=== PATIENT | female | born 1980 | race Caucasian/White ===

== ENCOUNTER 2017-11-08 11:25 | Inpatient (IN) | payer MEDICARE, MEDICAID ==
[~2017-11-08] VITALS: Ht 167.6 cm; Wt 92.9 kg
[2017-11-08 12:58] LABS: BASOPHILS % (AUTO) 0.7 % (0.0-2.0); EOSINOPHILS % (AUTO) 0.3 % (1.0-6.0); HEMATOCRIT 37.5 % (36-46); HEMOGLOBIN 12.9 g/dL (12.0-16.0); LYMPHOCYTES # (AUTO) 2.2 K/uL (1.0-4.8); MEAN CORPUSCULAR HEMOGLOBIN 30.7 pg (26.0-34.0); MEAN CORPUSCULAR HGB CONC 34.5 G/dL (31.0-37.0); MEAN CORPUSCULAR VOLUME 89 fL (80-100); MONOCYTES # (AUTO) 0.4 K/uL (0.1-1.0); MONOCYTES % (AUTO) 4.7 % (2.0-9.0); NEUTROPHILS # (AUTO) 6.3 K/uL (1.8-7.7); NEUTROPHILS % (AUTO) 70.3 % (40.0-70.0); PLATELET COUNT (AUTO) 401 K/uL (150-450); RED BLOOD CELL COUNT(AUTO) 4.22 MIL/uL (4.00-5.20); RED CELL DISTRIBUTION WIDTH 14.3 % (11.5-14.5)
[2017-11-08 13:12] LABS: ANION GAP 9 mmol/L (8-16); CALCIUM, TOTAL 7.9 mg/dL (8.8-10.5); CARBON DIOXIDE 23 mmol/L (22-29); CHLORIDE 106 mmol/L (98-107); CREATININE 0.66 mg/dL (0.60-1.30); GLOMERULAR FILTR. RATE CALC > 60 mL/min (>60); GLUCOSE,RANDOM 88 mg/dL (70-110); POTASSIUM 3.8 mmol/L (3.5-5.1); SODIUM SERUM 138 mmol/L (136-145); UREA NITROGEN, BLOOD 10 mg/dL (7-18)
[2017-11-08 13:26] LABS: ALANINE AMINOTRANSFERASE 27 U/L (12-78); ALBUMIN 3.4 g/dL (3.4-5.0); ALKALINE PHOSPHATASE 97 U/L (46-116); ASPARTATE AMINOTRANSFERASE 19 U/L (15-37); BILIRUBIN,TOTAL 0.1 mg/dL (0.1-1.0); TOTAL PROTEIN, SERUM 7.5 g/dL (6.4-8.2)
[2017-11-08] MEDS ORDERED: DiphenhydrAMINE HCL 50 MG/ML VIAL IM ONE (13:45)
[2017-11-08] MEDS ORDERED: LORazepam 2 MG/ML VIAL IM ONE (13:45)
[2017-11-08] MEDS ORDERED: HALOPERIDOL LACTATE 5 MG/ML VIAL IM ONE (13:45)
[2017-11-08] MEDS ORDERED: CYANOCOBALAMIN 1,000 MCG/ML VIAL IM ONE (14:00)
[2017-11-08] MEDS ORDERED: GuaiFENesin/D-METHORPHAN [SUGAR-FREE] 200-20MG/10 ML SYRUP UDCUP PO PRN (14:00)
[2017-11-08] MEDS ORDERED: ZOLPIDEM TARTRATE 10 MG TABLET PO PRN (14:00)
[2017-11-08] MEDS ORDERED: PROMETHAZINE HCL 25 MG TABLET PO PRN (14:00)
[2017-11-08] MEDS ORDERED: ACETAMINOPHEN 325 MG TABLET PO PRN (14:00)
[2017-11-08] MEDS ORDERED: LORazepam 2 MG TABLET PO PRN ×2 (14:00)
[2017-11-08] MEDS ORDERED: OLANZapine 5 MG RAPDIS TABLET PO PRN (14:00)
[2017-11-08] MEDS ORDERED: LOPERAMIDE HCL 2 MG CAPSULE PO PRN (14:00)
[2017-11-08] MEDS ORDERED: MAG HYDROX/AL HYDROX/SIMETH ES 30 ML SUSPENSION UDCUP PO PRN (14:00)
[2017-11-08] MEDS ORDERED: MAGNESIUM HYDROXIDE SUSPENSION 30 ML UDCUP PO PRN (14:00)
[2017-11-08] MEDS ORDERED: HydrOXYzine PAMOATE 50 MG CAPSULE PO PRN (14:00)
[2017-11-08] MEDS ORDERED: TUBERCULIN, PURIFIED PROTEIN DERIVATIVE 5 TU/0.1 ML SYG ID ONE (14:00)
[2017-11-08 14:13] LABS: AMPHET/METH SCREEN,URINE NEGATIVE (NEGATIVE); BARBITURATE SCREEN, URINE NEGATIVE (NEGATIVE); BENZODIAZEPINES SCREEN,URINE NEGATIVE (NEGATIVE); CANNABINOID SCREEN,URINE POSITIVE (NEGATIVE); COCAINE SCREEN,URINE NEGATIVE (NEGATIVE); METHADONE SCREEN, URINE NEGATIVE (NEGATIVE); OPIATE SCREEN,URINE NEGATIVE (NEGATIVE)
[2017-11-08 14:17] LABS: PHENCYCLIDINE SCREEN,URINE NEGATIVE (NEGATIVE)
[2017-11-08 14:47] LABS: APPEARANCE,URINE CLEAR (CLEAR); BILIRUBIN,URINE NEGATIVE (NEGATIVE); GLUCOSE, URINE (UA) NEGATIVE (NEGATIVE); KETONES,URINE NEGATIVE (NEGATIVE); LEUKOCYTE ESTERASE ,URINE NEGATIVE (NEGATIVE); NITRATE,URINE NEGATIVE (NEGATIVE); OCCULT BLOOD,URINE NEGATIVE (NEGATIVE); PROTEIN,URINE NEGATIVE (NEGATIVE); UROBILINOGEN,URINE 0.2 mg/dL (<=1.0)
[2017-11-08 15:02] LABS: HCG,QUANTITATIVE < 1 mIU/mL (0-6)
[2017-11-08 19:00] VITALS: BP 131/76
[2017-11-08 19:26] VITALS: BP 131/76
[2017-11-08] MEDS: THIAMINE HCL 100 MG TABLET PO SCH (19:51)
[2017-11-08 20:00] VITALS: BP 115/72
[2017-11-08] MEDS ORDERED: OLANZapine 5 MG RAPDIS TABLET PO SCH (21:00)
[2017-11-08 21:35] VITALS: BP 112/63
[2017-11-08 22:38] VITALS: BP 117/70
[2017-11-08 23:06] VITALS: BP 116/68
[2017-11-09] VITALS (9 sets, daily range): BP systolic 109–148; BP diastolic 65–92
[2017-11-09] MEDS ORDERED: LORazepam 2 MG TABLET PO PRN (07:00)
[2017-11-09 08:21] LABS: BASOPHILS % (AUTO) 0.5 % (0.0-2.0); EOSINOPHILS % (AUTO) 0.8 % (1.0-6.0); HEMATOCRIT 38.7 % (36-46); HEMOGLOBIN 13.6 g/dL (12.0-16.0); LYMPHOCYTES # (AUTO) 3.8 K/uL (1.0-4.8); LYMPHOCYTES % (AUTO) 35.6 % (22.0-44.0); MEAN CORPUSCULAR HEMOGLOBIN 31.5 pg (26.0-34.0); MEAN CORPUSCULAR VOLUME 90 fL (80-100); MONOCYTES # (AUTO) 0.5 K/uL (0.1-1.0); MONOCYTES % (AUTO) 4.7 % (2.0-9.0); NEUTROPHILS # (AUTO) 6.2 K/uL (1.8-7.7); NEUTROPHILS % (AUTO) 58.4 % (40.0-70.0); PLATELET COUNT (AUTO) 420 K/uL (150-450); RED BLOOD CELL COUNT(AUTO) 4.31 MIL/uL (4.00-5.20); RED CELL DISTRIBUTION WIDTH 14.7 % (11.5-14.5)
[2017-11-09] MEDS: FOLIC ACID 1 MG TABLET PO SCH (08:50)
[2017-11-09] MEDS: THIAMINE HCL 100 MG TABLET PO SCH ×2 (08:50→16:41)
[2017-11-09] MEDS: LORazepam 2 MG TABLET PO SCH ×4 (08:50→20:16)
[2017-11-09] MEDS: MULTIVITAMINS WITH MINERALS, THERAPEUTIC TABLET PO SCH (08:50)
[2017-11-09 09:01] LABS: ALANINE AMINOTRANSFERASE 26 U/L (12-78); ALBUMIN 3.3 g/dL (3.4-5.0); ALKALINE PHOSPHATASE 82 U/L (46-116); ANION GAP 9 mmol/L (8-16); ASPARTATE AMINOTRANSFERASE 19 U/L (15-37); BILIRUBIN,TOTAL 0.3 mg/dL (0.1-1.0); CALCIUM, TOTAL 8.3 mg/dL (8.8-10.5); CARBON DIOXIDE 25 mmol/L (22-29); CHLORIDE 107 mmol/L (98-107); CHOL/HDL RATIO 4.3 (3.9-5.7); CHOLESTEROL 182 mg/dL (131-200); CREATININE 0.71 mg/dL (0.60-1.30); FREE T4 (FREE THYROXINE) 0.98 ng/dL (0.76-1.46); GLOMERULAR FILTR. RATE CALC > 60 mL/min (>60); GLUCOSE,RANDOM 83 mg/dL (70-110); HDL CHOLESTEROL 42 mg/dL (40-60); LDL CHOL (CALC.) 106 mg/dL (0-130); POTASSIUM 3.9 mmol/L (3.5-5.1); SODIUM SERUM 141 mmol/L (136-145); THYROID STIMULATING HORMONE 4.24 uIU/mL (0.36-3.74); TOTAL PROTEIN, SERUM 7.2 g/dL (6.4-8.2); TRIGLYCERIDES 172 mg/dL (15-150); UREA NITROGEN, BLOOD 10 mg/dL (7-18)
[2017-11-09 09:13] LABS: HEMOGLOBIN A1C 5.8 % (4.5-6.2)
[2017-11-10] VITALS (8 sets, daily range): BP systolic 107–130; BP diastolic 65–98
[2017-11-10] MEDS ORDERED: ARIPiprazole 15 MG TABLET PO SCH (09:00)
[2017-11-10] MEDS: MULTIVITAMINS WITH MINERALS, THERAPEUTIC TABLET PO SCH (09:17)
[2017-11-10] MEDS: THIAMINE HCL 100 MG TABLET PO SCH ×2 (09:17→16:26)
[2017-11-10] MEDS: FLUoxetine HCL 20 MG CAPSULE PO SCH (09:17)
[2017-11-10] MEDS: LORazepam 2 MG TABLET PO SCH ×4 (09:18→20:10)
[2017-11-10] MEDS: FOLIC ACID 1 MG TABLET PO SCH (09:18)
[2017-11-11] MEDS ORDERED: LORazepam 1 MG TABLET PO PRN (07:00)
[2017-11-11 07:13] VITALS: BP 135/85
[2017-11-11 07:14] VITALS: BP 135/85
[2017-11-11 08:18] VITALS: BP 127/79
[2017-11-11] MEDS: THIAMINE HCL 100 MG TABLET PO SCH ×2 (08:35→16:17)
[2017-11-11] MEDS: MULTIVITAMINS WITH MINERALS, THERAPEUTIC TABLET PO SCH (08:35)
[2017-11-11] MEDS: FLUoxetine HCL 20 MG CAPSULE PO SCH (08:35)
[2017-11-11] MEDS: FOLIC ACID 1 MG TABLET PO SCH (08:36)
[2017-11-11] MEDS: LORazepam 1 MG TABLET PO SCH ×3 (08:36→16:17)
[2017-11-11] MEDS ORDERED: ARIPiprazole 10 MG TABLET PO SCH (09:00)
[2017-11-11] MEDS ORDERED: LOPERAMIDE HCL 2 MG CAPSULE PO PRN (14:00)
[2017-11-11 16:24] VITALS: BP 134/63
[2017-11-11] MEDS ORDERED: ARIP10TA8 PO (17:46)
[2017-11-11] MEDS ORDERED: FLUO-191 PO (17:47)
[2017-11-12] MEDS ORDERED: LORazepam 1 MG TABLET PO PRN (07:00)
== END 2017-11-11 18:05 | disposition home or self-care (01) | DRG 885 ==
LOC: EMS 11:27 → B3A 16:15
PROVIDERS: ADMIT Psychiatry & Neurology Psychiatry; ATTEND Psychiatry & Neurology Psychiatry
DX: F20.0 Paranoid schizophrenia (principal); F10.10 Alcohol abuse, uncomplicated; E78.5 Hyperlipidemia, unspecified; F19.10 Other psychoactive substance abuse, uncomplicated; F17.210 Nicotine dependence, cigarettes, uncomplicated; Z91.14 Patient's other noncompliance with medication regimen; Z91.5 Personal history of self-harm
CPT/HCPCS: 83036; 84439; 84443; 86592; 96372; 99285; G0480; J1200; J1630; J2060; J3420

== ENCOUNTER 2019-12-19 22:37 | Inpatient (IN) | payer MEDICARE, MEDICAID ==
[~2019-12-19] VITALS: Ht 172.7 cm; Wt 63.6 kg
[~2019-12-19 22:37] MED LIST: ARIP10TA8 PO; FLUO-191 PO
[2019-12-19] MEDS ORDERED: LORazepam 2 MG/ML VIAL IM ONE (23:30)
[2019-12-19] MEDS ORDERED: DiphenhydrAMINE HCL 50 MG/ML VIAL IM ONE (23:30)
[2019-12-19] MEDS ORDERED: HALOPERIDOL LACTATE 5 MG/ML VIAL IM ONE (23:30)
[2019-12-20] MEDS ORDERED: HALOPERIDOL 5 MG TABLET PO PRN (01:15)
[2019-12-20] MEDS ORDERED: ZOLPIDEM TARTRATE 10 MG TABLET PO PRN (01:15)
[2019-12-20 03:59] VITALS: BP 96/60
[2019-12-20] MEDS ORDERED: IBUPROFEN 400 MG TABLET PO PRN (07:30)
[2019-12-20] MEDS ORDERED: ALBUTEROL SULFATE HFA 90 MCG/PUFF 8 GM INHALER IH PRN (07:30)
[2019-12-20] MEDS ORDERED: PETROLATUM,WHITE 28 GM JELLY TP PRN (07:30)
[2019-12-20] MEDS ORDERED: ONDANSETRON HCL 4 MG TABLET PO PRN (07:30)
[2019-12-20] MEDS ORDERED: ACETAMINOPHEN 325 MG TABLET PO PRN (07:30)
[2019-12-20] MEDS ORDERED: LOPERAMIDE HCL 2 MG CAPSULE PO PRN (07:30)
[2019-12-20] MEDS ORDERED: MAGNESIUM HYDROXIDE SUSPENSION 30 ML UDCUP PO PRN (07:30)
[2019-12-20] MEDS ORDERED: MAG HYDROX/AL HYDROX/SIMETH ES 30 ML SUSPENSION UDCUP PO PRN (07:30)
[2019-12-20] MEDS ORDERED: CloNIDine HCL 0.1 MG TABLET PO PRN (07:30)
[2019-12-20] MEDS ORDERED: NICOTINE 14 MG/24 HOUR PATCH TD PRN (07:30)
[2019-12-20] MEDS ORDERED: DOCUSATE SODIUM 100 MG CAPSULE PO PRN (07:30)
[2019-12-20] MEDS ORDERED: GuaiFENesin/D-METHORPHAN [SUGAR-FREE] 200-20MG/10 ML SYRUP UDCUP PO PRN (07:30)
[2019-12-20] MEDS: ZIPRASIDONE HCL 20 MG CAPSULE PO SCH (16:08)
[2019-12-20 16:18] VITALS: BP 110/66
[2019-12-21 04:48] VITALS: BP 99/68
[2019-12-21] MEDS: ZIPRASIDONE HCL 20 MG CAPSULE PO SCH ×2 (06:11→16:20)
[2019-12-21 08:02] LABS: CHOL/HDL RATIO 2.4 (3.9-5.7)
[2019-12-21 08:26] VITALS: BP 116/78
[2019-12-21] MEDS: FLUoxetine HCL 20 MG CAPSULE PO SCH (08:36)
[2019-12-21 16:24] VITALS: BP 119/61
[2019-12-22 01:35] VITALS: BP 123/71
[2019-12-22] MEDS: ZIPRASIDONE HCL 20 MG CAPSULE PO SCH ×2 (07:08→16:19)
[2019-12-22 08:30] VITALS: BP 122/80
[2019-12-22] MEDS: FLUoxetine HCL 20 MG CAPSULE PO SCH (09:02)
[2019-12-22 17:04] VITALS: BP 109/76
[2019-12-23 06:49] VITALS: BP 145/82
[2019-12-23] MEDS: ZIPRASIDONE HCL 20 MG CAPSULE PO SCH ×2 (06:49→16:37)
[2019-12-23 08:58] VITALS: BP 112/76
[2019-12-23] MEDS: FLUoxetine HCL 20 MG CAPSULE PO SCH (08:58)
[2019-12-23 17:37] VITALS: BP 105/65
[2019-12-24 02:27] VITALS: BP 136/88
[2019-12-24] MEDS: ZIPRASIDONE HCL 20 MG CAPSULE PO SCH ×2 (07:23→16:38)
[2019-12-24 08:39] VITALS: BP 130/71
[2019-12-24] MEDS: FLUoxetine HCL 20 MG CAPSULE PO SCH (09:53)
[2019-12-24 16:38] VITALS: BP 104/76
[2019-12-25 05:28] VITALS: BP 105/60
[2019-12-25] MEDS: ZIPRASIDONE HCL 20 MG CAPSULE PO SCH ×2 (06:41→16:30)
[2019-12-25] MEDS: FLUoxetine HCL 20 MG CAPSULE PO SCH (09:05)
[2019-12-25 09:10] VITALS: BP 123/78
[2019-12-25 16:20] VITALS: BP 111/62
[2019-12-26] MEDS: ZIPRASIDONE HCL 20 MG CAPSULE PO SCH ×2 (06:19→16:33)
[2019-12-26 06:30] VITALS: BP 103/63
[2019-12-26 08:50] VITALS: BP 136/70
[2019-12-26] MEDS: FLUoxetine HCL 20 MG CAPSULE PO SCH (09:22)
[2019-12-26 16:25] VITALS: BP 112/73
[2019-12-26] MEDS: LORazepam 2 MG TABLET PO PRN (20:26)
[2019-12-27 05:26] VITALS: BP 110/69
[2019-12-27] MEDS: ZIPRASIDONE HCL 20 MG CAPSULE PO SCH ×2 (06:39→16:15)
[2019-12-27 08:06] VITALS: BP 113/65
[2019-12-27] MEDS: FLUoxetine HCL 20 MG CAPSULE PO SCH (08:54)
[2019-12-27 16:23] VITALS: BP 119/77
[2019-12-28 04:29] VITALS: BP 109/81
[2019-12-28] MEDS: ZIPRASIDONE HCL 20 MG CAPSULE PO SCH ×2 (07:02→16:34)
[2019-12-28 08:09] VITALS: BP 109/64
[2019-12-28] MEDS: FLUoxetine HCL 20 MG CAPSULE PO SCH (09:06)
[2019-12-28 16:22] VITALS: BP 106/70
[2019-12-28] MEDS: LORazepam 2 MG TABLET PO PRN (18:59)
[2019-12-29 00:56] VITALS: BP 107/72
[2019-12-29] MEDS: ZIPRASIDONE HCL 20 MG CAPSULE PO SCH ×2 (06:53→16:32)
[2019-12-29 08:19] LABS: ANION GAP 6 mmol/L (8-16); CARBON DIOXIDE 29 mmol/L (22-29); CHLORIDE 110 mmol/L (98-107); POTASSIUM 4.9 mmol/L (3.5-5.1); SODIUM SERUM 145 mmol/L (136-145)
[2019-12-29 08:20] LABS: CALCIUM, TOTAL 8.6 mg/dL (8.8-10.5); CREATININE 0.63 mg/dL (0.60-1.30); GLOMERULAR FILTR. RATE CALC > 60 mL/min (>60); GLUCOSE,RANDOM 84 mg/dL (70-110); UREA NITROGEN, BLOOD 14 mg/dL (7-18)
[2019-12-29] MEDS: FLUoxetine HCL 20 MG CAPSULE PO SCH (08:30)
[2019-12-29 08:32] VITALS: BP 112/54
[2019-12-29 16:00] VITALS: BP 125/63
[2019-12-29] MEDS: LORazepam 2 MG TABLET PO PRN (18:03)
[2019-12-30 00:19] VITALS: BP 108/66
[2019-12-30] MEDS: LORazepam 2 MG TABLET PO PRN ×2 (01:07→20:49)
[2019-12-30] MEDS: ZIPRASIDONE HCL 20 MG CAPSULE PO SCH ×2 (06:46→16:59)
[2019-12-30 08:18] VITALS: BP 103/68
[2019-12-30] MEDS: FLUoxetine HCL 20 MG CAPSULE PO SCH (09:06)
[2019-12-30 16:30] VITALS: BP 111/65
[2019-12-31 05:24] VITALS: BP 107/76
[2019-12-31] MEDS: ZIPRASIDONE HCL 20 MG CAPSULE PO SCH ×2 (06:56→16:03)
[2019-12-31] MEDS: FLUoxetine HCL 20 MG CAPSULE PO SCH (08:07)
[2019-12-31 08:11] VITALS: BP 104/73
[2019-12-31 16:06] VITALS: BP 104/69
[2020-01-01 00:32] VITALS: BP 110/67
[2020-01-01] MEDS: LORazepam 2 MG TABLET PO PRN (00:51)
[2020-01-01] MEDS: ZIPRASIDONE HCL 20 MG CAPSULE PO SCH (06:54)
[2020-01-01 08:22] VITALS: BP 114/73
[2020-01-01] MEDS: FLUoxetine HCL 20 MG CAPSULE PO SCH (08:23)
[2020-01-01] MEDS ORDERED: ZIPR20CA2 PO (09:42)
== END 2020-01-01 13:10 | disposition home or self-care (01) | DRG 885 ==
LOC: EMS 22:37 → B3A 12-20 01:30 → B2X 12-21 10:04
PROVIDERS: ADMIT Psychiatry & Neurology Child & Adolescent Psychiatry; ATTEND Psychiatry & Neurology Child & Adolescent Psychiatry
DX: F20.0 Paranoid schizophrenia (principal); K59.00 Constipation, unspecified; I95.9 Hypotension, unspecified; G44.209 Tension-type headache, unspecified, not intractable; K21.9 Gastro-esophageal reflux disease without esophagitis; Z59.0 Homelessness; Z79.899 Other long term (current) drug therapy; Z87.891 Personal history of nicotine dependence; Z91.14 Patient's other noncompliance with medication regimen
CPT/HCPCS: 87081; 99291; J1200; J1630; J2060; J3535